=== PATIENT | male | born 1950 | race Caucasian/White ===

== ENCOUNTER 2016-05-05 15:52 | Emergency (ER) | payer OTHER ==
[2016-05-05 17:25] VITALS: BP 174/65; PULSE 63; RESP 18; TEMP 97.3; O2SAT 97
== END 2016-05-05 17:30 | disposition home or self-care (01) | DRG 563 ==
LOC: ED 15:52
DX: M23.91 Unspecified internal derangement of right knee (principal); W01.0XXA Fall on same level from slipping, tripping and stumbling without subsequent striking against object, initial encounter
CPT/HCPCS: 73560; 99282; 99283; L1830

== ENCOUNTER 2018-10-04 10:12 | Day surgery (SDC) | payer OTHER, MEDICARE ==
[2018-10-04] MEDS ORDERED: BUPIVACAINE HCL 0.25% MPF 30 ML SOL INFIL ONE (10:44)
[2018-10-04] MEDS: TRIAMCINOLONE ACETONIDE 40 MG/ML SUS ONE ×2 (11:14→11:19)
[2018-10-04 11:17] VITALS: PULSE 58
[2018-10-04 11:36] VITALS: BP 147/71; RESP 18; TEMP 97.3; O2SAT 95
== END 2018-10-04 11:50 | disposition home or self-care (01) | DRG 554 ==
LOC: SURG 10:12
PROVIDERS: ATTEND Nurse Anesthetist, Certified Registered
DX: M12.9 Arthropathy, unspecified (principal); E11.9 Type 2 diabetes mellitus without complications
CPT/HCPCS: 82962; J3300